=== PATIENT | male | born 1990 | race Caucasian/White ===

== ENCOUNTER → 2017-03-24 | Outpatient (CLI) | payer OTHER | LOC: SUN.DIA 10:43 | DX: E11.9 Type 2 diabetes mellitus without complications (principal); E78.5 Hyperlipidemia, unspecified; I10 Essential (primary) hypertension; E66.9 Obesity, unspecified; Z68.34 Body mass index [BMI] 34.0-34.9, adult; Z71.3 Dietary counseling and surveillance | CPT/HCPCS: G0108 ==

== ENCOUNTER 2021-09-26 18:27 | Inpatient (IN) | payer OTHER ==
[~2021-09-26] VITALS: Ht 185.4 cm; Wt 115.2 kg
[2021-09-26] MEDS ORDERED: PRINIVIL40 MG PO (18:36)
[2021-09-26] MEDS ORDERED: LIPITOR 10MG10 MG PO (18:37)
[2021-09-26] MEDS ORDERED: TESSALON P100 MG/CAP PO (18:37)
[2021-09-26] MEDS ORDERED: PRILOSEC 20MG20 MG PO (18:37)
[2021-09-26] MEDS ORDERED: SYNTHROID 0.0.025 MG PO (18:37)
[2021-09-26 18:48] LABS: BASO # 0.1 K/mm3 (0.0-0.2); BASO % 0.4 % (0.0-2.0); EOS # 0.4 K/mm3 (0.0-0.7); EOS % 3.3 % (0.0-4.0); GRAN # 8.6 K/mm3 (1.4-6.5); GRAN % 64.3 % (42.2-75.2); HEMATOCRIT 39.7 % (42.0-52.0); HEMOGLOBIN 12.3 g/dl (13.5-18.0); LYMPH % 22.5 % (20.0-51.0); MEAN CELL VOLUME 65 fl (80.0-100.0); MEAN CORPUSCULAR HEMOGLOBIN 20 pg (27-31); MEAN CORPUSCULAR HGB CONC 31 g/dl (33.0-37.0); MONO # 1.2 K/mm3 (0.1-0.6); MONO % 9.1 % (1.7-9.3); PLATELET COUNT 448 K/mm3 (130-400); RED BLOOD COUNT 6.15 M/mm3 (4.20-5.60); REDCELL DISTRIBUTION WIDTH-CV 15.7 % (11.5-14.5)
[2021-09-26 19:06] LABS: ALANINE AMINOTRANSFERASE 87 U/L (0-55); ALBUMIN 4.6 gm/dL (3.5-5.0); ALKALINE PHOSPHATASE 103 U/L (40-150); ANION GAP 14 mmol/L (7-16); AST,SGOT 41 U/L (5-34); BILIRUBIN,TOTAL 1.1 mg/dL (0.2-1.2); BLOOD UREA NITROGEN 10 mg/dL (9-21); CARBON DIOXIDE 23 mmol/L (22-29); CHLORIDE 103 mmol/L (98-107); CREATININE, serum 0.96 mg/dL (0.72-1.25); GLUCOSE 122 mg/dL (70-99); POTASSIUM 3.8 mmol/L (3.5-4.5); SODIUM 140 mmol/L (136-145); TOTAL PROTEIN 8.2 gm/dL (6.2-8.1)
[2021-09-26 19:11] LABS: TROPONIN-I < 0.010 ng/mL (0.00-0.033)
[2021-09-26 19:19] LABS: TRICYCLIC ANTIDEPRESS URINE NEGATIVE
[2021-09-27] VITALS (105 sets, daily range): BP systolic 144–179; BP diastolic 81–133; PULSE 95–109; TEMP 97.5–98.3; O2SAT 86–100
[2021-09-27 06:44] LABS: BASO % 0.3 % (0.0-2.0); EOS % 0.2 % (0.0-4.0); GRAN # 12.1 K/mm3 (1.4-6.5); GRAN % 83.9 % (42.2-75.2); HEMATOCRIT 37.7 % (42.0-52.0); HEMOGLOBIN 11.8 g/dl (13.5-18.0); LYMPH # 1.5 K/mm3 (1.2-3.4); LYMPH % 10.3 % (20.0-51.0); MEAN CELL VOLUME 64 fl (80.0-100.0); MEAN CORPUSCULAR HEMOGLOBIN 20 pg (27-31); MEAN CORPUSCULAR HGB CONC 31 g/dl (33.0-37.0); MEAN PLATELET VOLUME 9.2 fl (7.4-10.4); MONO # 0.7 K/mm3 (0.1-0.6); MONO % 4.8 % (1.7-9.3); PLATELET COUNT 428 K/mm3 (130-400); RED BLOOD COUNT 5.89 M/mm3 (4.20-5.60)
[2021-09-27 07:05] LABS: CALCIUM 9.4 mg/dL (8.4-10.2); CREATININE, serum 0.76 mg/dL (0.72-1.25); POTASSIUM 3.9 mmol/L (3.5-4.5)
--- NOTE | 2021-09-27 14:00 | NUR ---
Pt arrived to the floor from ICU. BP was still elevated, gave now dose of hydralazine. Pt is alert and oriented and knows we are doing the 24 hour urine.
--- NOTE | 2021-09-27 17:00 | NUR ---
Have updated Dr Torres regarding BP. New orders received. Monitoring BP often. Pt very knowledgeable about medications and what he takes. I have given him handouts on Catapress, hydralazine and norvasc.
[2021-09-28 00:05] VITALS: BP 171/98; PULSE 96; TEMP 97.9
[2021-09-28 02:05] VITALS: BP 134/77
[2021-09-28 04:20] VITALS: BP 153/72; PULSE 81; TEMP 97.7
--- NOTE | 2021-09-28 05:50 | NUR ---
ASSESSMENT COMPLETE FOR THIS SHIFT. PT SITTING UP IN BED WATCHING TV. PT HAD SOME ELEVATED BLOOD PRESSURES (173/105 HIGHTEST). APRESOLINE AND CATAPRES GIVEN. CATAPRES SEEMED MORE EFFECTIVE. PT COMPLAINED OF A SMALL HEADACHE, BUT WANT ANYTHING FOR IT. WILL CONTINUE TO MONITOR AND KEEP HOSPITALIST UPDATED. PT EXPRESSED NO OTHER NEEDS AT THIS TIME. CALL LIGHT WITHIN REACH.
[2021-09-28 06:51] LABS: BASO % 0.4 % (0.0-2.0); EOS # 0.3 K/mm3 (0.0-0.7); GRAN # 7.1 K/mm3 (1.4-6.5); GRAN % 64.9 % (42.2-75.2); HEMOGLOBIN 11.3 g/dl (13.5-18.0); LYMPH # 2.5 K/mm3 (1.2-3.4); LYMPH % 22.6 % (20.0-51.0); MEAN CELL VOLUME 65 fl (80.0-100.0); MEAN CORPUSCULAR HEMOGLOBIN 20 pg (27-31); MEAN CORPUSCULAR HGB CONC 31 g/dl (33.0-37.0); MEAN PLATELET VOLUME 9.2 fl (7.4-10.4); MONO # 0.9 K/mm3 (0.1-0.6); MONO % 8.6 % (1.7-9.3); PLATELET COUNT 382 K/mm3 (130-400); RED BLOOD COUNT 5.65 M/mm3 (4.20-5.60)
[2021-09-28 06:53] LABS: HEMATOCRIT 36.8 % (42.0-52.0)
[2021-09-28 07:14] LABS: CALCIUM 9.6 mg/dL (8.4-10.2); CREATININE, serum 0.75 mg/dL (0.72-1.25)
[2021-09-28 07:38] VITALS: BP 167/87; PULSE 90; TEMP 98.1
[2021-09-28 07:53] LABS: POTASSIUM 3.6 mmol/L (3.5-4.5)
--- NOTE | 2021-09-28 08:20 | NUR ---
PT SITTING UP IN BED. MORNING MEDICATIONS GIVEN. SHIFT ASSESSMENT COMPLETED. PT DENIES ANY PAIN OR NEEDS AT THIS TIME. UPDATED PT ON POC, AGREEABLE. WILL CONTINUE TO MONITOR.
--- NOTE | 2021-09-28 09:16 | NUR ---
SANTIAGO met with the patient and his boyfriend, Chaim (ph#[phone]), to discuss discharge plan. The patient lives in [place] with Chaim. He reports independence with ADLs and does not have any DME. He works for [employer]. The patient's primary care provider is ROBERT Lopez at the on-site clinic for [employer] and he receives his medications from [facility]. The patient does not have a DPOA-HC and he was not interested in completing one at this time. He states that he is not , does not have any children, and that his parents are his legal next-of-kin: Royce and Bhavani. The patient plans to return home with his boyfriend upon discharge. No additioanl needs at this time. *Discharge plan: home with partner*
[2021-09-28] MEDS ORDERED: APRESOLINE 25MG25 MG PO (10:52)
[2021-09-28] MEDS ORDERED: NORVASC 5MG5 MG/TAB PO (10:53)
[2021-09-28 11:13] VITALS: BP 153/93; PULSE 99; TEMP 98.1
[2021-09-28] MEDS ORDERED: ASPIRIN E.C. 8181 MG PO (11:56)
--- NOTE | 2021-09-28 12:49 | NUR ---
DISCHARGE INSTRUCTION GIVE, ALL QUESTIONS ANSWERED. IV D/C. TELE D/C. PT DISCHARGED WITH PERSONAL BELONGINGS. WILL D/C FROM SYSTEM.
[2021-09-28 14:48] LABS: CATECHOLAMINES-HRS COLLECTED 24 (())
[2021-10-01 16:11] LABS: DOPAMINE 73 mcg/24 h (65-400); EPINEPHRINE 18 mcg/24 h (<21); NOREPINEPHRINE 62 mcg/24 h (15-80); URINE VOLUME 2150 mL (())
[2021-10-01 20:13] LABS: CORTISOL,URINE 258 mcg/24 h (3.5-45)
== END 2021-09-28 12:50 | disposition home or self-care (01) | DRG 305 ==
LOC: COL.ER 18:27 → ICU 22:19 → MEDICAL 09-27 12:30
PROVIDERS: Emergency Medicine; Student in an Organized Health Care Education/Training Program; ADMIT Student in an Organized Health Care Education/Training Program
DX: I16.0 Hypertensive urgency (principal); K92.0 Hematemesis; I10 Essential (primary) hypertension; F12.90 Cannabis use, unspecified, uncomplicated; D72.829 Elevated white blood cell count, unspecified; E78.5 Hyperlipidemia, unspecified; K21.9 Gastro-esophageal reflux disease without esophagitis; R04.0 Epistaxis; E03.9 Hypothyroidism, unspecified; J40 Bronchitis, not specified as acute or chronic; R00.0 Tachycardia, unspecified; E11.9 Type 2 diabetes mellitus without complications; Z79.890 Hormone replacement therapy
CPT/HCPCS: 99233-AI; 99239; J0360; J1650; J2060; J2405; J7030

== ENCOUNTER 2021-09-28 18:07 | Observation (INO) | payer OTHER ==
[~2021-09-28] VITALS: Ht 185.4 cm; Wt 112.6 kg
[~2021-09-28 18:07] MED LIST: APRESOLINE 25MG25 MG PO; ASPIRIN E.C. 8181 MG PO; LIPITOR 10MG10 MG PO; NORVASC 5MG5 MG/TAB PO; PRILOSEC 20MG20 MG PO; PRINIVIL40 MG PO; SYNTHROID 0.0.025 MG PO; TESSALON P100 MG/CAP PO
[2021-09-28 20:00] VITALS: BP 176/104; PULSE 109; TEMP 97.6
[2021-09-28 20:20] LABS: BASO # 0.1 K/mm3 (0.0-0.2); BASO % 0.4 % (0.0-2.0); EOS # 0.1 K/mm3 (0.0-0.7); EOS % 0.6 % (0.0-4.0); GRAN # 10.3 K/mm3 (1.4-6.5); GRAN % 79.1 % (42.2-75.2); HEMATOCRIT 38.6 % (42.0-52.0); HEMOGLOBIN 11.6 g/dl (13.5-18.0); LYMPH # 1.9 K/mm3 (1.2-3.4); LYMPH % 14.4 % (20.0-51.0); MEAN CELL VOLUME 65 fl (80.0-100.0); MEAN CORPUSCULAR HEMOGLOBIN 20 pg (27-31); MEAN CORPUSCULAR HGB CONC 30 g/dl (33.0-37.0); MEAN PLATELET VOLUME 9.1 fl (7.4-10.4); MONO # 0.7 K/mm3 (0.1-0.6); PLATELET COUNT 456 K/mm3 (130-400); RED BLOOD COUNT 5.91 M/mm3 (4.20-5.60)
[2021-09-28 20:56] LABS: ALBUMIN 4.6 gm/dL (3.5-5.0); BILIRUBIN,TOTAL 1.2 mg/dL (0.2-1.2); CALCIUM 10.2 mg/dL (8.4-10.2); CREATININE, serum 0.78 mg/dL (0.72-1.25); POTASSIUM 3.8 mmol/L (3.5-4.5); TOTAL PROTEIN 8.2 gm/dL (6.2-8.1)
[2021-09-28 21:06] LABS: TROPONIN-I 0.235 ng/mL (0.00-0.033)
--- NOTE | 2021-09-28 22:22 | NUR ---
REPORT FROM ED RN STATES THE PATIENT HAD RECENTLY BEEN DISCHARGED FROM OUR HOSPITAL THIS AFTERNOON. THE PATIENT WENT HOME AND HAD SOME ANXIETY AND HTN EMERGENCY. PRESSURES WERE HIGH, AND THE MEDICATIONS THE PATIENT HAD DID NOT HELP AND KEPT GETTING HIGHER. PT IS BEING TRANSPORTED TO [facility] FLOOR AT THIS TIME.
[2021-09-29] VITALS (7 sets, daily range): BP systolic 126–174; BP diastolic 65–107; PULSE 80–120; TEMP 97.4–98.4
[2021-09-29 00:48] LABS: TRICYCLIC ANTIDEPRESS URINE NEGATIVE
[2021-09-29 06:05] LABS: BASO % 0.4 % (0.0-2.0); EOS # 0.2 K/mm3 (0.0-0.7); EOS % 2.2 % (0.0-4.0); GRAN # 5.8 K/mm3 (1.4-6.5); GRAN % 58.4 % (42.2-75.2); HEMOGLOBIN 11.2 g/dl (13.5-18.0); MEAN CELL VOLUME 65 fl (80.0-100.0); MEAN CORPUSCULAR HEMOGLOBIN 20 pg (27-31); MEAN CORPUSCULAR HGB CONC 31 g/dl (33.0-37.0); MEAN PLATELET VOLUME 9.2 fl (7.4-10.4); MONO # 0.8 K/mm3 (0.1-0.6); MONO % 8.5 % (1.7-9.3); PLATELET COUNT 390 K/mm3 (130-400); RED BLOOD COUNT 5.59 M/mm3 (4.20-5.60); REDCELL DISTRIBUTION WIDTH-CV 14.9 % (11.5-14.5)
[2021-09-29 06:18] LABS: HEMATOCRIT 36.1 % (42.0-52.0)
[2021-09-29 06:23] LABS: CALCIUM 9.3 mg/dL (8.4-10.2); CREATININE, serum 0.75 mg/dL (0.72-1.25); POTASSIUM 3.5 mmol/L (3.5-4.5)
--- NOTE | 2021-09-29 07:03 | NUR ---
PT HAD UNEVENTFUL SHIFT. HTN HAS RESOLVED. THE PATIENT STATES HE FEELS REALLY GOOD THIS MORNING. REPORT GIVEN TO MENG TELLO.
--- NOTE | 2021-09-29 08:50 | NUR ---
PT SITTING UP IN BED ON ROOM AIR. PT STATES NO PAIN OR SOB AT THIS TIME. PT STATES "I AM JUST MADAN HANGIN OUT AND SEEING WHAT THEY ARE GOING TO DO." PT HAS BEEN NPO FROM [employer] MACHINIST JUST INCASE A PROCEDURE IS NEEDED TODAY. PT STATES NO NEEDS OR CONCERNS AT THIS TIME. CALL LIGHT IS WITHIN REACH.
--- NOTE | 2021-09-29 09:29 | NUR ---
The patient discharged from the hospital yesterday, 09/28. He returned home with his partner. He states that he checked his blood pressure last night and then kept checking it. He states that he became fixated on it and had anxiety. He states that he has always had anxiety and becomes sort of a hypochondriac. He then returned back to the hospital for further evaluation of elevated blood pressure. The patient lives in [place] with his boyfriend, Chaim (ph#[phone]). He reports independence with ADLs and does not have any DME. He works at [employer]. The patient's primary care provider is ROBERT Malcolm at the on-site clinic through [employer]. He receives his medications from [facility]. The patient does not have a DPOA-HC. He states that he is not and does not have any children. His parents Royce and Bhavani are his next of kin. The patient plans to return home with his partner upon discharge. SANTIAGO addressed the patient's anxiety. The patient states that he does not have any depression, but has always had anxiety. He would like to find ways to cope with it. He was interested in a list of local mental health resources. SANTIAGO provided him with that list. No additional needs at this time. *Discharge plan: home with partner*
--- NOTE | 2021-09-29 19:11 | NUR ---
PT INFORMED THIS RN THAT HE HAD BEEN TAKING ANYWHERE FROM 250-500 MG CAFFEINE PILLS DAILY. HE DENIES ANY DISCOMFORT ASIDE FROM A HEADACHE. NO OTHER CONCERNS AT THIS TIME. PT'S PARTNER IS AT THE BEDSIDE. WILL RETURN FOR ASSESSMENT AND MEDICATIONS.
--- NOTE | 2021-09-29 19:14 | NUR ---
PT SITTING UP IN BED EATING DINNER WITH FAMILY AT BEDSIDE. PT STATES HIS HEADACHE IS STILL THERE. STATES THAT THE XANAX MADE HIM "FEEL THE BEST HE HAS IN A WHIILE." PT STATES NO OTHER NEEDS/CONCERNS AT THIS TIME. CALL LIGHT IS WITHIN REACH.
[2021-09-30 00:34] VITALS: BP 179/95; PULSE 102; TEMP 98.1
[2021-09-30 05:00] VITALS: BP 143/84; PULSE 93; TEMP 97.7
--- NOTE | 2021-09-30 05:19 | NUR ---
THE PATIENT HAS HAD AN UNEVENTFUL SHIFT. DID HAVE ONE EPISODE OF HTN, HOWEVER, AFTER CONTACTING ROBERT MURPHY FOR AN ORDER FOR HYDRALAZINE, REPEAT BP WAS COMING DOWN. DID NOT NEED TO GIVE ANY ADDITIONAL MEDICATION. WILL REPORT TO DAY SHIFT THE EVENTS OF THE NIGHT. NO OTHER CONCERNS.
[2021-09-30 07:00] VITALS: BP 136/70; PULSE 88; TEMP 97.4
--- NOTE | 2021-09-30 08:30 | NUR ---
Pt doing okay this morning, he is hopeful to get to go home today. He is requsting to speak to a pharmacist about the xanax. Informed him that I would notify them and have them come in prior to him leaving. Pt denies any other needs, reports not wanting breakfast at this time
[2021-09-30] MEDS ORDERED: APRESOLINE50 MG PO (10:57)
[2021-09-30] MEDS ORDERED: XANAX 0.5MG0.5 MG PO (10:58)
[2021-09-30] MEDS ORDERED: NORVASC 10MG10 MG PO (10:58)
--- NOTE | 2021-09-30 11:30 | NUR ---
Bonita: No restorationism preference Situation: Quotation Clerk stopped by room on rounds Background: PT was up and around Assessment: PT seemed content and rested Recommendation: Quotation Clerk will follow up as needed
--- NOTE | 2021-09-30 12:03 | NUR ---
Reviewed discharge instructions with pt. Discussed increase in dose of medications. All questions answered. Pharmacy did make it in to visit with pt. INT removed and pt escorted out
== END 2021-09-30 12:05 | disposition home or self-care (01) ==
LOC: COL.ER 18:07 → MEDICAL 21:43
PROVIDERS: Nurse Practitioner; Student in an Organized Health Care Education/Training Program; ADMIT Student in an Organized Health Care Education/Training Program
DX: I16.0 Hypertensive urgency (principal); I10 Essential (primary) hypertension; E78.5 Hyperlipidemia, unspecified; E03.9 Hypothyroidism, unspecified; K21.9 Gastro-esophageal reflux disease without esophagitis; F41.9 Anxiety disorder, unspecified; F12.90 Cannabis use, unspecified, uncomplicated; Z79.899 Other long term (current) drug therapy
CPT/HCPCS: G0378; J1650; J7030; Q9967

== ENCOUNTER → 2022-04-26 | Outpatient (CLI) | payer OTHER ==
[~2022-04-26] MED LIST changes: +APRESOLINE50 MG PO; +NORVASC 10MG10 MG PO; +XANAX 0.5MG0.5 MG PO
== END ==
LOC: COL.RAD 14:39
DX: N43.3 Hydrocele, unspecified (principal)

== ENCOUNTER 2023-11-24 19:00 | Emergency (ER) | payer OTHER ==
[~2023-11-24] VITALS: Ht 185.4 cm; Wt 87.7 kg
[2023-11-24 21:32] LABS: COLLECTION METHOD CLEAN CATCH
[2023-11-24 21:42] LABS: PH 6.5 (5.0-8.5); URINE APPEARANCE CLEAR (CLEAR/HAZY); URINE BLOOD 2+ (NEGATIVE); URINE COLOR YELLOW (YELLOW); URINE GLUCOSE NEGATIVE (NEGATIVE); URINE KETONE NEGATIVE (NEGATIVE); URINE NITRATE NEGATIVE (NEGATIVE); URINE PROTEIN(semi-quant) NEGATIVE (NEGATIVE); URINE UROBILINOGEN 0.2 E.U/dL (0.2-1.0)
[2023-11-24 22:39] VITALS: BP 149/91; PULSE 78; TEMP 98.3
== END 2023-11-24 22:42 | disposition home or self-care (01) ==
LOC: COL.ER 19:00
PROVIDERS: Physician Assistant
DX: R31.9 Hematuria, unspecified (principal)